=== PATIENT | male | born 1970 | race Caucasian/White ===

== ENCOUNTER 2018-11-11 11:44 | Emergency (ER) | payer OTHER ==
[2018-11-11] MEDS ORDERED: NS 0.9% 1000 ML** 1,000 ML IV ONE (12:10)
[2018-11-11] MEDS ORDERED: Ketorolac INJ* 30 MG/ML 1 ML VIAL IV PUSH ONE (12:11)
[2018-11-11] MEDS ORDERED: LORazepam INJ* 2 MG/ML 1 ML VIAL IV PUSH ONE ×2 (12:11→14:27)
[2018-11-11] MEDS ORDERED: Orphenadrine Citrate IV* 30 MG/ML 2 ML VIAL IV ONE (12:11)
--- NOTE | 2018-11-11 12:22 | ED ---
Neck Pain - HPI Summary HPI Summary: A 48 y/o male presents to [facility] with a chief complaint of muscle spasms in his neck since the morning of 11/10/18. The patient reports that he has had these problems since June 2017 after his cervical fusion. At triage he rated his pain as a 6/10 in severity. The patient reports that he felt fine on 11/10/18 and that he is from [place]. He was told that doctors believe that his spasms may be due to inflammation of the phrenic nerve around the area where the fusion was done. The patient is unsure whether his pain radiates. He denies CP or SOB. He reports that this neck pain is usually treated with a muscle relaxer. - History of Current Complaint Chief Complaint: EDChestWallPain Stated Complaint: ABD PAIN/CHEST AND NECK SPASMS Time Seen by Provider: 11/11/18 12:06 Hx Obtained From: Patient Onset/Duration Of Injury/Symptoms: Hours Mechanism Of Injury: Other - doctors believe that his spasms may be due to inflammation of the phrenic nerve around the area where the fusion was done. Timing: Constant, Lasting Hours Onset/Duration: Sudden Onset, Started hours ago, Still Present Severity Initially: Moderate Severity Currently: Moderate Pain Intensity: 6 Pain Scale Used: 0-10 Numeric Location: Diffuse Character: Spasmotic Aggravating Factors: Nothing Alleviating Factors: Nothing Associated Signs & Symptoms: Positive: Negative - CP, SOB. Negative: Fever - Allergies/Home Medications Allergies/Adverse Reactions: Allergies Allergy/AdvReac Type Severity Reaction Status Date / Time No Known Allergies Allergy Verified 11/11/18 11:51 PMH/Surg Hx/FS Hx/Imm Hx Endocrine/Hematology History: Denies: Hx Diabetes Cardiovascular History: Denies: Hx Hypercholesterolemia, Hx Hypertension - Surgical History Surgery Procedure, Year, and Place: cervical fusion june 2017 Infectious Disease History: No Infectious Disease History: Denies: Traveled Outside the [place] in Last 30 Days - Family History Known Family History: Positive: Hypertension - father Negative: Diabetes - Social History Alcohol Use: None Hx Substance Use: No Substance Use Type: Reports: None Hx Tobacco Use: No Smoking Status (MU): Never Smoked Tobacco Review of Systems Negative: Fever Negative: Chest Pain Negative: Shortness Of Breath Positive: Other - positive: neck pain from muscle spasms All Other Systems Reviewed And Are Negative: Yes Physical Exam - Summary Physical Exam Summary: VITAL SIGNS: Reviewed. GENERAL: Patient is a well-developed and nourished MALE who is lying comfortable in the stretcher. Patient is not in any acute respiratory distress. HEAD AND FACE: No signs of trauma. No ecchymosis, hematomas or skull depressions. No sinus tenderness. EYES: PERRLA, EOMI x 2, No injected conjunctiva, no nystagmus. EARS: Hearing grossly intact. Ear canals and tympanic membranes are within normal limits. MOUTH: Oropharynx within normal limits. NECK: Muscle spasms in neck down to chest, some distress secondary to uncontrollable muscle spasms, No C-spine tenderness, Supple, trachea is midline, no adenopathy, no JVD, no carotid bruit, no c-spine tenderness, neck with full ROM. CHEST: Symmetric, no tenderness at palpation LUNGS: Clear to auscultation bilaterally. No wheezing or crackles. CVS: Regular rate and rhythm, S1 and S2 present, no murmurs or gallops appreciated. ABDOMEN: Soft, non-tender. No signs of distention. No rebound no guarding, and no masses palpated. Bowel sounds are normal. EXTREMITIES: FROM in all major joints, no edema, no cyanosis or clubbing. NEURO: Alert and oriented x 3. No acute neurological deficits. Speech is normal and follows commands. SKIN: Dry and warm Triage Information Reviewed: Yes Vital Signs On Initial Exam: Initial Vitals Temp Pulse Resp BP Pulse Ox 97.7 F 80 24 136/100 97 11/11/18 11:48 11/11/18 11:48 11/11/18 11:48 11/11/18 11:48 11/11/18 11:48 Vital Signs Reviewed: Yes Diagnostics - Vital Signs Vital Signs Temp Pulse Resp BP Pulse Ox 11/11/18 11:48 97.7 F 80 24 136/100 97 - Laboratory Result Diagrams: 11/11/18 12:37 11/11/18 12:37 Lab Statement: Any lab studies that have been ordered have been reviewed, and results considered in the medical decision making process. - Radiology CXR Radiology Interpretation Completed By: Radiologist Summary of Radiographic Findings: No active cardiopulmonary disease is noted. ED physician has reviewed this imaging report. Re-Evaluation - Re-Evaluation First Eval Re-Evaluation Time: 13:37 Change: Improved Comment: informed patient about results. Second Eval Re-Evaluation Time: 14:13 Change: Improved Comment: discussed plan for discharge Neck Course/Dx - Course Assessment/Plan: Blood work without any significant abnormality except for glucose 113. Chest x-ray impression: No active Pulmonary disease. Patient reports that he had multiple episodes of these muscle spasms after he had neck surgery and he had injury of the phrenic nerve. However every time he is treated with muscle relaxants and anti-anxiety medications. Therefore the patient was given Norflex, Ativan, normal saline, total for the neck pain. The patient reports the most of symptoms have resolved, however he still has some neck pain. The patient was given 1 dose of morphine. Afterwards medications the patients symptoms have resolved. The patient reports no complaints. At this point the patient is hemodynamically stable alert and oriented 3. The patient will be discharged home with follow-up with primary care physician. Patient ambulated out of the emergency room. All questions were answered and the patient has no further concerns. - Diagnoses Differential Dx/HQI/PQRI: Positive: Dystonia, Sprain, Strain, Torticollis Provider Diagnoses: Muscle spasm Discharge - Sign-Out/Discharge Documenting (check all that apply): Patient Departure - DC Patient Received Moderate/Deep Sedation with Procedure: No - Discharge Plan Condition: Stable Disposition: HOME Prescriptions: Hydrocodone/Acetaminophen [Vicodin 5-300 mg Tablet] 1 tab PO Q8H PRN #10 tablet MDD 4 PRN Reason: Pain Methocarbamol TAB* [Robaxin 500 MG TAB*] 500 mg PO TID PRN #12 tab PRN Reason: Spasms Patient Education Materials: Muscle Spasm (ED) Referrals: [facility] [Outside] (3 days) Additional Instructions: RETURN TO THE ED FOR ANY WORSENING OR NEW SYMPTOMS. - Billing Disposition and Condition Condition: STABLE Disposition: Home - Attestation Statements Document Initiated by Scribe: Yes Documenting Scribe: Keon Perry Provider For Whom Liana is Documenting (Include Credential): Jcarlos Ramirez MD Scribe Attestation: Keon Arroyo, scribed for Jcarlos Ramirez MD on 11/11/18 at 2113. Scribe Documentation Reviewed: Yes Provider Attestation: The documentation as recorded by the Keon gee accurately reflects the service I personally performed and the decisions made by me, Jcarlos Ramirez MD Status of Scribe Document: Viewed
[2018-11-11 12:52] LABS: ABS Basophils 0 10^3/ul (0-0.2); ABS Eosinophils 0 10^3/ul (0-0.6); ABS Lymphocytes 1.1 10^3/ul (1.0-4.8); ABS Monocytes 0.3 10^3/ul (0-0.8); ABS Neutrophils 4.4 10^3/ul (1.5-7.7); ABS Nucleated RBC 0 10^3/ul; Eosinophil % 0.2 %; Hematocrit 45 % (42-52); Hemoglobin 15.9 g/dl (14.0-18.0); Lymphocyte % 18.7 %; Mean Corpuscular HGB Conc 36 g/dl (31-36); Mean Corpuscular Hemoglobin 30 pg (27-31); Mean Corpuscular Volume 85 fL (80-94); Mean Platelet Volume 7.6 fL (7.4-10.4); Nucleated Red Blood Cells % 0.1; Platelet Count 194 10^3/ul (150-450); Red Blood Count 5.25 10^6/ul (4.00-5.40); Red Cell Distribution Width 13 % (10.5-15); White Blood Count 5.8 10^3/ul (3.5-10.8)
[2018-11-11] MEDS ORDERED: Morphine VIAL* 10 MG/ML 1 ML VIAL IV ONE (13:02)
[2018-11-11 13:18] LABS: ALT 16 U/L (7-52); AST 14 U/L (13-39); Albumin 4.3 g/dL (3.2-5.2); Alkaline Phosphatase 97 U/L (34-104); Anion Gap 6 mmol/L (2-11); BUN/Creatinine Ratio 24.4 (8-20); Blood Urea Nitrogen 21 mg/dL (6-24); C Reactive Protein < 1.00 mg/L (<8.01); CO2 Carbon Dioxide 26 mmol/L (22-32); Calcium 9.5 mg/dL (8.6-10.3); Chloride 104 mmol/L (101-111); EGFR African American 115.8 (>60); EGFR Non-African American 95.7 (>60); Globulin 2.2 g/dL (2-4); Glucose 113 mg/dL (70-100); Potassium 4.5 mmol/L (3.5-5.0); Sodium 136 mmol/L (135-145); Total Protein 6.5 g/dL (6.4-8.9)
[2018-11-11 13:38] LABS: TSH (Thyroid Stimulating Horm) 0.35 mcIU/mL (0.34-5.60)
[2018-11-11 14:41] VITALS: BP 110/84
== END 2018-11-11 14:40 | disposition home or self-care (01) ==
LOC: ED 11:44
DX: M62.838 Other muscle spasm (principal)
CPT/HCPCS: 36415; 71046; 80053; 84443; 85025; 86140; 96374; 96375; 99283; J1885; J2060; J2270; J2360

== ENCOUNTER 2018-11-12 09:45 | Emergency (ER) | payer OTHER ==
--- NOTE | 2018-11-12 10:54 | ED ---
Neurological HPI - HPI Summary HPI Summary: 48-year-old male presents with what he describes as phrenic nerve spasm since yesterday. He states that it started yesterday. He states he's had a C4-C5 fusion in the past and a month after the infusion he developed spasms. He states they have been intermittent and has not had one in a while. He states this happened at least 3 times before. He states has had a worked up by neurologist and neurosurgeon and it is believed the phrenic nerve was hit during surgery. He states he is a follow-up with his neurosurgeon tomorrow. 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 He states that he isonly short of breath when he has spasms. He denies any bowel pain. Pain starts in lower chest and radiates up to his neck. He also admits to neck pain. He denies any weakness. No numbness or tingling. No pain into the arms. Is not dropping objects. No fevers. - History of Current Complaint Chief Complaint: EDGeneral Stated Complaint: MUSCLE SPASMS IN CHEST/SHOULDER Time Seen by Provider: 11/12/18 10:15 Pain Intensity: 7 - Allergy/Home Medications Allergies/Adverse Reactions: Allergies Allergy/AdvReac Type Severity Reaction Status Date / Time No Known Allergies Allergy Verified 11/11/18 11:51 PMH/Surg Hx/FS Hx/Imm Hx Endocrine/Hematology History: Denies: Hx Diabetes Cardiovascular History: Denies: Hx Hypercholesterolemia, Hx Hypertension - Surgical History Surgery Procedure, Year, and Place: cervical fusion june 2017 Infectious Disease History: No Infectious Disease History: Denies: Traveled Outside the [place] in Last 30 Days - Family History Known Family History: Positive: Hypertension - father Negative: Diabetes - Social History Alcohol Use: None Hx Substance Use: No Substance Use Type: Reports: None Hx Tobacco Use: No Smoking Status (MU): Never Smoked Tobacco Review of Systems Negative: Fever Negative: Chest Pain Negative: Shortness Of Breath Positive: Myalgia - muscle spasms chest and neck All Other Systems Reviewed And Are Negative: Yes Physical Exam Triage Information Reviewed: Yes Vital Signs On Initial Exam: Initial Vitals Temp Pulse Resp BP Pulse Ox 97.6 F 80 18 144/104 96 11/12/18 09:54 11/12/18 09:54 11/12/18 09:54 11/12/18 09:54 11/12/18 09:54 Vital Signs Reviewed: Yes Appearance: Positive: Pain Distress Skin: Positive: Warm, Dry Head/Face: Positive: Normal Head/Face Inspection Eyes: Positive: Normal, EOMI, CHANDA, Conjunctiva Clear ENT: Positive: Normal ENT inspection, Pharynx normal, TMs normal Neck: Positive: Supple, Nontender, No Lymphadenopathy, Other: - full ROM neck. no midline tenderness Respiratory/Lung Sounds: Positive: Clear to Auscultation, Breath Sounds Present , Other - spasms bilateral of chest wall Cardiovascular: Positive: Normal, RRR Abdomen Description: Positive: Nontender, Soft Bowel Sounds: Positive: Present Musculoskeletal: Positive: Strength/ROM Intact - arms, Other - good pulses Neurological: Positive: Sensory/Motor Intact, Alert, Oriented to Person Place, Time, CN Intact II-III Psychiatric: Positive: Normal Diagnostics - Vital Signs Vital Signs Temp Pulse Resp BP Pulse Ox 11/12/18 09:54 97.6 F 80 18 144/104 96 - Laboratory Lab Statement: Any lab studies that have been ordered have been reviewed, and results considered in the medical decision making process. Re-Evaluation - Re-Evaluation First Eval Change: Improved Comment: still having spasms Second Eval Re-Evaluation Time: 12:52 Change: Improved Comment: improved but not completely relieved Course/Dx - Course Course Of Treatment: Primary 8-year-old male presents with chest and neck spasms today. He states that his chronic nerve is aggravated. He states this happened before. Happened after he had a cervical fusion of C4 and C5 1 couple months later. He states that he strained while in the spasms.. He states he took a medication that was prescribed yesterday while he was here worked up for such. He states that the muscle spasms have returned. On exam has muscle spasms of the anterior chest and neck. Full range of motion neck. Good strength in upper extremities. Patient appears uncomfortable. Gave dosed with Valium and Toradol and some improvement but not much. discussed with dr villarreal who states that he should follow up with his neurologist does not need anything at this time. gave morphine and ativan and some improvement. discussed will send script for valium. patient states that wanted to go before second dose of morphine. patient will follow up with neuro surgery tomorrow. patient understand and agrees with plan. - Differential Dx Differential Diagnoses Neuro: Positive: Other - cerivical dystonia, muscle spasms, fracture - Diagnoses Provider Diagnoses: Muscle spasm Discharge - Sign-Out/Discharge Documenting (check all that apply): Patient Departure Patient Received Moderate/Deep Sedation with Procedure: No - Discharge Plan Condition: Good Disposition: HOME Prescriptions: Diazepam TAB(*) [Valium TAB(*)] 5 mg PO TID PRN #3 tab MDD 3 PRN Reason: Spasms Referrals: No Primary Care Phys,NOPCP [Primary Care Provider] - Additional Instructions: add on valium every 8 hours as needed for muscle spasms follow up with neurology Return to ED if develop any new or worsening symptoms - Billing Disposition and Condition Condition: GOOD Disposition: Home
[2018-11-12] MEDS ORDERED: Diazepam TAB(*) 5 MG PO ONE (10:59)
[2018-11-12] MEDS ORDERED: Ketorolac INJ* 30 MG/ML 1 ML VIAL IM ONE (11:14)
[2018-11-12] MEDS ORDERED: Morphine VIAL* 10 MG/ML 1 ML VIAL IV ONE ×2 (11:55→12:49)
[2018-11-12] MEDS ORDERED: LORazepam INJ* 2 MG/ML 1 ML VIAL IV PUSH ONE (12:17)
[2018-11-12 13:51] VITALS: BP 133/93
== END 2018-11-12 13:50 | disposition home or self-care (01) ==
LOC: ED 09:45
DX: M62.838 Other muscle spasm (principal)
CPT/HCPCS: 96372; 96374; 96375; 96376; 99282; A9270-GY; J1885; J2060; J2270